=== PATIENT | female | born 1940 | race Two or more races ===

== ENCOUNTER 2018-03-26 11:44 | Inpatient (IN) | payer MEDICARE, OTHER ==
--- NOTE | 2018-03-26 12:27 | ED Physician Chart ---
ED Chief Complaint/HPI - Patient Information Date Seen:: 03/26/18 Time Seen:: 11:50 Chief Complaint:: Syncope History of Present Illness:: onset x 2 days of syncope, weakness, dizziness, and vertigo resulting in falls with failure to rthrive; no report of H/As, S/T, neck pain, C/P, SOB, Abd. Pain , A/N/V/D/C, fever, chills, or urinary s/s; pt's last tetanus shot: < 5 years; UTD Allergies:: Allergies Allergy/AdvReac Type Severity Reaction Status Date / Time No Known Allergies Allergy Verified 03/26/18 11:51 Vitals:: Vital Signs - 8 hr 03/26/18 11:52 Temp 97.7 F HR 66 RR 16 BP 173/94 O2 Sat % 98 Historian:: Patient, EMS Review:: Nurse's Note Reviewed, Old Chart Reviewed, EMS run form Reviewed ED Review of Systems - Review of Systems General/Constitutional: No fever, No chills, No weight loss, Weakness, No diaphoresis, No edema, No loss of appetite Skin: No skin lesions, No rash, No bruising Head: No headache, No light-headedness Eyes: No loss of vision, No pain, No diplopia ENT: No earache, No nasal drainage, No sore throat, No tinnitus Neck: No neck pain, No swelling, No thyromegaly, No stiffness, No mass noted Cardio Vascular: No chest pain, No palpitations, No PND, No orthopnea, No edema Pulmonary: No SOB, No cough, No sputum, No wheezing GI: No nausea, No vomiting, No diarrhea, No pain, No melena, No hematochezia, No constipation, No hematemesis G/U: No dysuria, No frequency, No hematuria, No nacturia 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, No abnormal vaginal bleed, No contraction Musculoskeletal: No bone or joint pain, No back pain, No muscle pain Endocrine: No polyuria, No polydipsia Psychiatric: Prior psych history, Depression, Anxiety, No suicidal ideation, No homicidal ideation, No auditory hallucination, No visual hallucination Hematopoietic: No bruising, No lymphadenopathy Allergic/Immuno: No urticaria, No angioedema Neurological: Syncope, No focal symptoms, Weakness, No paresthesia, No headache , No seizure, Dizziness, Confusion, Vertigo ED Past Medical History - Past Medical History Obtainable: Yes Past Medical History: HTN, DM, Arthritis Family History: Diabetes Melitus, HTN Social History: Non Smoker, No Alcohol, No Drug Use, , Care Facility Surgical History: None Psychiatricy History: Depression Medication: Reviewed Family Medical History - Family Member Mother History Unknown: Yes ED Physical Exam - Physical Examination General/Constitutional: Awake, Well-developed, well-nourished, Alert, No distress, GCS 15, Non-toxic appearing, Ambulatory Head: Atraumatic Eyes: Lids, conjuctiva normal, PERRL, EOMI Skin: Nl inspection, No rash, No skin lesions, No ecchymosis, Well hydrated, No lymphadenopathy ENMT: External ears, nose nl, TM canals nl, Nasal exam nl, Lips, teeth, gums nl , Oropharynx nl, Tonsils nl Neck: Nontender, Full ROM w/o pain, No JVD, No nuchal rigidity, No bruit, No mass, No stridor Respiratory: Nl effort/Exclusion, Clear to Auscultation, No Wheeze/Rhonchi/Rales Cardio Vascular: RRR, No murmur, gallop, rubs, NL S1 S2, Carotid/Femoral/Distal pulses equal bilaterally GI: No tenderness/rebounding/guarding, No organomegaly, No hernia, Normal BS's, Nondistended, No mass/bruits, No McBurney tenderness, Rectum exam nl : No CVA tenderness Extremities: No tenderness or effusion, Full ROM, normal strength in all extremities, No edema, Normal digits & nails Neuro/Psych: Alert/oriented, DTR's symmetric, Normal sensory exam, Normal motor strength, Judgement/insight normal, Mood normal, Normal gait, No focal deficits Misc: Normal back, No paraspinal tenderness ED Labs/Radiology/EKG Results - Lab Results Comments:: unremarkable - Radiology Results Comments:: CM; NAD - EKG Interpretations EKG Time:: 12:18 Rate & Rhythm: 67; NSR Comments:: T-Wave Inversions; non-specific st-t changes ED Septic Shock - . Is Septic Shock (SBP<90, OR Lactate>4 mmol\L) present?: No - <6hrs of presentation: Vital Signs: Vital Signs - 8 hr 03/26/18 11:52 Temp 97.7 F HR 66 RR 16 BP 173/94 O2 Sat % 98 ED Reassessment (Disposition) - Reassessment Reassessment Condition:: Improved - Diagnosis Diagnosis:: Myocardial Ischemia; Failure to Thrive; Syncope; Falls; TIA; Cardiac Arrythmias; - Aftercare/Follow up Instructions Aftercare/Follow-Up Instructions:: Counseled pt regarding lab results/diagnosis & need follow up, Counseled pt & family regarding lab results/diagnosis & need follow up - Patient Disposition Discharge/Transfer:: Acute Care w/in this hosp Accepting Physician:: Dr. Vasquez Time Called:: 1330 Time Responded:: 13:30 Admitted to:: Telemetry Spoke to:: Dr. Vasquez Admitting Medical Physician:: Dr. Vasquez Condition at Disposition:: Stable, Improved ED Discharge Plan - Patient Disposition Instructions: Psychosis
[2018-03-26 12:30] LABS: % BASOPHILS 1.2 % (0.0-2.0); % LYMPHOCYTES 21.5 % (20.0-50.0); % MONOCYTES 6.8 % (2.0-10.0); % NEUTROPHILS 66.5 % (40.0-80.0); BASOPHILE ABSOLUTE 0.1 Th/cumm (0-0.2); EOSINOPHILE ABSOLUTE 0.3 Th/cmm (0.1-0.4); HEMATOCRIT 38.5 % (41.0-60); LYMPHOCYTE ABSOLUTE 1.4 Th/cmm (1.5-3.0); MEAN CELL VOLUME 82.3 fl (81-100); MEAN CORPUSCULAR HEMOGLOBIN 27.8 pg (27.0-31.0); MEAN CORPUSCULAR HGB CONC 33.8 pg (28.0-36.0); MEAN PLATELET VOLUME 8.4 fl; MONOCYTE ABSOLUTE 0.4 Th/cmm (0.3-1.0); NEUTROPHILE ABSOLUTE 4.4 Th/cmm (1.8-8.0); PLATELET COUNT 254 Th/cmm (150-400); RED BLOOD COUNT 4.68 Mil/cmm (3.80-5.20); RED CELL DISTRIBUTION WIDTH 14.2 % (11.5-20.0); WHITE BLOOD COUNT 6.6 Th/cmm (4.8-10.8)
--- NOTE | 2018-03-26 12:35 | Diagnostic Imaging Report ---
CHEST X-RAY: AP view INDICATION: pain COMPARISON: None FINDINGS: Left lower lung zone subsegmental atelectasis versus scarring is noted. Mild chronic changes are noted. There is no focal consolidation or pleural effusions The heart is normal in size. Atherosclerosis is noted. Degenerative changes of the spine are noted. IMPRESSION: Left lower lung zone subsegmental atelectasis versus scarring. No focal consolidation identified. Atherosclerotic vascular disease.
[2018-03-26 12:53] LABS: TROP I 0.03 ng/mL (0.01-0.05)
[2018-03-26 13:20] LABS: INR 0.95 (0.5-1.4); PROTHROMBIN TIME (TEST) 9.9 SECONDS (9.5-11.5)
[2018-03-26 14:03] LABS: ALB/GLOB RATIO 1.4 (1.0-1.8); ALKALINE PHOSPHATASE 79 U/L (34-104); ANION GAP 11.6 (7.0-16.0); BILIRUBIN,TOTAL 0.4 mg/dL (0.3-1.0); BUN - UREA NITROGEN 18 mg/dL (7-25); CALCIUM SERUM 9.4 mg/dL (8.6-10.3); CARBON DIOXIDE 27.1 mEq/L (21.0-31.0); CHLORIDE 106 mEq/L (98-107); CREATININE - SERUM 0.8 mg/dL (0.6-1.2); CREATININE KINASE 37 U/L (30-223); GLUCOSE 133 mg/dL (70-105); POTASSIUM SERUM 3.7 mEq/L (3.5-5.1); SGOT 16 U/L (13-39); SGPT/ALT 10 U/L (7-52); SODIUM SERUM 141 mEq/L (136-145); TOTAL PROTEIN,SERUM 6.8 gm/dL (6.0-8.3)
[2018-03-26 16:05] LABS: URINE MICROSCOPIC INDICATED? YES; URINE SOURCE MIDSTREAM
[2018-03-26 16:07] LABS: URINE BILIRUBIN NEGATIVE (NEGATIVE); URINE BLOOD NEGATIVE (NEGATIVE); URINE GLUCOSE (UA) NEGATIVE (NEGATIVE); URINE KETONE NEGATIVE (NEGATIVE); URINE LEUKOCYTE ESTERASE SMALL (NEGATIVE); URINE NITRATE NEGATIVE (NEGATIVE); URINE PROTEIN NEGATIVE (NEGATIVE); URINE UROBILINOGEN 0.2 E.U./dL (0.2 - 1.0)
[2018-03-26 16:14] LABS: URINE CLARITY CLEAR (CLEAR); URINE COLOR YELLOW
[2018-03-26 16:17] LABS: URINE BACTERIA NONE SEEN /hpf (NONE SEEN); URINE EPITHELIAL CELLS RARE /lpf (FEW); URINE RBC NONE SEEN /hpf (0-5); URINE WBC 0-2 /hpf (0-5)
[2018-03-26 18:15] VITALS: BP 185/114
[2018-03-26] MEDS ORDERED: MYLANTA PO PRN (18:37)
[2018-03-26] MEDS ORDERED: MAGNESIUM HYDROXIDE PO PRN (18:37)
[2018-03-26] MEDS ORDERED: ALUMINUM HYDROXIDE PO PRN (18:37)
[2018-03-26] MEDS ORDERED: PYRIDOXINE HCL PO SCH (21:00)
[2018-03-26] MEDS ORDERED: MELATONIN PO SCH (21:00)
--- NOTE | 2018-03-27 07:06 | Consultation ---
DATE OF CONSULTATION: 03/27/2018 AGE: 77. SEX: Female. PHYSICIAN: Dr. Vasquez. TERRAZZO WORKER APPRENTICE: Dr. Talley. TYPE OF THE REPORT: Psychiatric consult. REASON FOR THE CONSULT: Agitation and confusion. HISTORY OF PRESENT ILLNESS: The patient was admitted to the hospital because of syncope for 2 days as well as weakness, dizziness and vertigo results in falls with failure to thrive. Chart reviewed and the patient interviewed and discussed the patient's condition with the staff. The patient is confused and agitated. She also was restless. The patient did not answer any of my questions coherently. She also was fighting mittens and a soft restraints. The patient also has been taking Ativan in order to calm her down but is not helping that much. PAST PSYCHIATRIC HISTORY: The patient seems to have history of dementia. PAST MEDICAL HISTORY: As per Dr. Vasquez. SOCIAL HISTORY: The patient lives in a halfway. No known alcohol or drug use. MENTAL STATUS EXAM: The patient appears her stated age. Anxious. Irritable mood. Thought processes was confusion and poverty of speech. The patient did not answer questions regarding hallucinations, but actively responding to stimuli and actively talking to herself. Poor insight and poor judgment. ASSESSMENT: PRIMARY DIAGNOSIS: Unspecified psychosis. TREATMENT PLAN: Continue to monitor her behavior and her condition closely. Also, we will start the patient on Seroquel and we will adjust the dose. Also, monitor her behavior. Thanks to Dr. Vasquez and we will follow with you. JOB# [id number]
[2018-03-27] MEDS ORDERED: Maalox 30 mL Cup PO PRN ×2 (08:43→08:45)
[2018-03-27] MEDS ORDERED: PYRIDOXINE HCL PO SCH (09:00)
[2018-03-27] MEDS ORDERED: MELATONIN PO SCH (09:00)
--- NOTE | 2018-03-27 16:36 | History & Physical ---
ADMIT DATE: 03/26/2018 HISTORY OF PRESENT ILLNESS: I saw the patient last night. This is a patient who came to the Emergency Room for syncopal episodes and also history of underling psychosis. Two days ago, the patient had syncope, weakness, complaining of dizziness and vertigo. The patient has had multiple falls. The patient is not able to eat well and the patient was admitted for evaluation. All history obtained from the patient as well as from the EMS records and nurses' notes were reviewed. The patient's past medical history is difficult to obtain. REVIEW OF SYSTEMS: Except for history of fall and history of syncope, all other systems were negative. PAST MEDICAL HISTORY: Hypertension, diabetes, arthritis. PHYSICAL EXAMINATION: HEAD: Normal. ENT: Normal. NECK: Supple, nontender. LUNGS: Clear. CARDIOVASCULAR SYSTEM: S1, S2 heard. ABDOMEN: Soft. Bowel sounds are present. CENTRAL NERVOUS SYSTEM: The patient is confused, agitated. LABORATORY DATA: EKG showed some changes and blood pressure was on the high side, 173/93. DIAGNOSES: Hypertensive cardiovascular disease, myocardial ischemia, failure to thrive, history of syncope, history of fall, rule out TIA, rule out cardiac arrhythmia and underlying psychosis was made. PLAN: The patient is being admitted and I will go ahead and do a cardiac and neuro workup and I will have both the bait maker as well as neurologist see the patient and I will follow the patient. JOB# [id number]
[2018-03-27] MEDS ORDERED: Pneumococcal Vaccine 0.5 mL Vial IM ONE (17:00)
[2018-03-28 07:36] LABS: RED CELL DISTRIBUTION WIDTH 13.9 % (11.5-20.0)
[2018-03-28 07:47] LABS: HEMATOCRIT 42.8 % (41.0-60); HEMOGLOBIN 14.2 gm/dL (12-16); MEAN CELL VOLUME 83.3 fl (81-100); MEAN CORPUSCULAR HEMOGLOBIN 27.7 pg (27.0-31.0); MEAN CORPUSCULAR HGB CONC 33.3 pg (28.0-36.0); MEAN PLATELET VOLUME 9.5 fl; PLATELET COUNT 275 Th/cmm (150-400); RED BLOOD COUNT 5.14 Mil/cmm (3.80-5.20); WHITE BLOOD COUNT 11.8 Th/cmm (4.8-10.8)
[2018-03-28 07:53] LABS: ANION GAP 12.7 (7.0-16.0); BUN - UREA NITROGEN 22 mg/dL (7-25); CALCIUM SERUM 9.4 mg/dL (8.6-10.3); CARBON DIOXIDE 23.7 mEq/L (21.0-31.0); CHLORIDE 105 mEq/L (98-107); CREATININE - SERUM 0.8 mg/dL (0.6-1.2); GLUCOSE 135 mg/dL (70-105); POTASSIUM SERUM 3.4 mEq/L (3.5-5.1); SODIUM SERUM 138 mEq/L (136-145)
[2018-03-28 09:23] LABS: BAND NEUTROPHILE 4 % (0-10); LYMPHOCYTE 12 % (20-50); NEUTROPHILS 76 % (40-80)
[2018-03-28 09:24] LABS: BASOPHIL 0 % (0-3); EOSINOPHIL 3 % (0-5); MONOCYTE 5 % (2-10); PLATELET ESTIMATE ADEQUATE (NORMAL); PLATELET MORPHOLOGY NORMAL (NORMAL)
[2018-03-28] MEDS: D5-0.45NS 1,000 ML IV SCH (13:39)
[2018-03-28] MEDS ORDERED: Potassium Chloride 20 mEq ER Tab PO ONE ×2 (19:24→19:28)
--- NOTE | 2018-03-28 21:24 | Progress Notes ---
DATE: 03/28/2018 PSYCHIATRIC PROGRESS NOTE SUBJECTIVE: Chart reviewed and the patient interviewed. Also discussed the patient's condition with the staff and reviewed records and labs. The patient is calmer and less agitated. The patient also is interacting more. The patient is less agitated and less irritable. She is also compliant with taking her medications with no side effects of Zyprexa or Depakote. ASSESSMENT: The patient is calmer. TREATMENT PLAN: Continue same medications and current treatment and continue to follow up closely her behavior. [facility]# [id number]
--- NOTE | 2018-03-28 22:17 | General Progress Note ---
Subjective - Review of Systems Service Date: 03/28/18 Subjective: nad Objective - Results Result Diagrams: 03/28/18 07:05 03/28/18 07:05 Recent Labs: Laboratory Last Values WBC 11.8 Th/cmm (4.8-10.8) H 03/28/18 07:05 RBC 5.14 Mil/cmm (3.80-5.20) 03/28/18 07:05 Hgb 14.2 gm/dL (12-16) 03/28/18 07:05 Hct 42.8 % (41.0-60) 03/28/18 07:05 MCV 83.3 fl (81-100) 03/28/18 07:05 MCH 27.7 pg (27.0-31.0) 03/28/18 07:05 MCHC Differential 33.3 pg (28.0-36.0) 03/28/18 07:05 RDW 13.9 % (11.5-20.0) 03/28/18 07:05 Plt Count 275 Th/cmm (150-400) 03/28/18 07:05 MPV 9.5 fl 03/28/18 07:05 Add Manual Diff YES 03/28/18 07:05 Neutrophils % 66.5 % (40.0-80.0) 03/26/18 12:18 Band Neutrophils % 4 % (0-10) 03/28/18 07:05 Lymphocytes % 21.5 % (20.0-50.0) 03/26/18 12:18 Monocytes % 6.8 % (2.0-10.0) 03/26/18 12:18 Eosinophils % 4.0 % (0.0-5.0) 03/26/18 12:18 Basophils % 1.2 % (0.0-2.0) 03/26/18 12:18 Neutrophils (Manual) 76 % (40-80) 03/28/18 07:05 Lymphocytes 12 % (20-50) L 03/28/18 07:05 Monocytes 5 % (2-10) 03/28/18 07:05 Eosinophils 3 % (0-5) 03/28/18 07:05 Basophils 0 % (0-3) 03/28/18 07:05 Platelet Estimate ADEQUATE (NORMAL) 03/28/18 07:05 Platelet Morphology NORMAL (NORMAL) 03/28/18 07:05 RBC Morph Micro Appear NORMAL (NORMAL) 03/28/18 07:05 PT 9.9 SECONDS (9.5-11.5) 03/26/18 12:18 INR 0.95 (0.5-1.4) 03/26/18 12:18 PTT (Actin FS) 31.2 SECONDS (26.0-38.0) 03/26/18 12:18 Sodium 138 mEq/L (136-145) 03/28/18 07:05 Potassium 3.4 mEq/L (3.5-5.1) L 03/28/18 07:05 Chloride 105 mEq/L (98-107) 03/28/18 07:05 Carbon Dioxide 23.7 mEq/L (21.0-31.0) 03/28/18 07:05 Anion Gap 12.7 (7.0-16.0) 03/28/18 07:05 BUN 22 mg/dL (7-25) 03/28/18 07:05 Creatinine 0.8 mg/dL (0.6-1.2) 03/28/18 07:05 Est GFR ( Amer) TNP 03/28/18 07:05 Est GFR (Non-Af Amer) TNP 03/28/18 07:05 BUN/Creatinine Ratio 27.5 03/28/18 07:05 Glucose 135 mg/dL (70-105) H 03/28/18 07:05 POC Glucose 167 MG/DL (70 - 105) H 03/28/18 12:24 Whole Bld Lactic Acid 1.68 mmol/L (0.60-1.99) 03/26/18 12:18 Calcium 9.4 mg/dL (8.6-10.3) 03/28/18 07:05 Total Bilirubin 0.4 mg/dL (0.3-1.0) 03/26/18 12:18 AST 16 U/L (13-39) 03/26/18 12:18 ALT 10 U/L (7-52) 03/26/18 12:18 Alkaline Phosphatase 79 U/L (34-104) 03/26/18 12:18 Creatine Kinase 37 U/L (30-223) 03/26/18 12:18 Troponin I 0.03 ng/mL (0.01-0.05) 03/26/18 12:18 Total Protein 6.8 gm/dL (6.0-8.3) 03/26/18 12:18 Albumin 4.0 gm/dL (3.7-5.3) 03/26/18 12:18 Globulin 2.8 gm/dL 03/26/18 12:18 Albumin/Globulin Ratio 1.4 (1.0-1.8) 03/26/18 12:18 Urine Source MIDSTREAM 03/26/18 14:31 Urine Color YELLOW 03/26/18 14:31 Urine Clarity CLEAR (CLEAR) 03/26/18 14:31 Urine pH 6.0 (4.6 - 8.0) 03/26/18 14:31 Ur Specific [place] 1.010 (1.005-1.030) 03/26/18 14:31 Urine Protein NEGATIVE mg/dL (NEGATIVE) 03/26/18 14:31 Urine Glucose (UA) NEGATIVE mg/dL (NEGATIVE) 03/26/18 14:31 Urine Ketones NEGATIVE mg/dL (NEGATIVE) 03/26/18 14:31 Urine Blood NEGATIVE (NEGATIVE) 03/26/18 14:31 Urine Nitrate NEGATIVE (NEGATIVE) 03/26/18 14:31 Urine Bilirubin NEGATIVE (NEGATIVE) 03/26/18 14:31 Urine Urobilinogen 0.2 E.U./dL (0.2 - 1.0) 03/26/18 14:31 Ur Leukocyte Esterase SMALL (NEGATIVE) H 03/26/18 14:31 Urine RBC NONE SEEN /hpf (0-5) 03/26/18 14:31 Urine WBC 0-2 /hpf (0-5) 03/26/18 14:31 Ur Epithelial Cells RARE /lpf (FEW) 03/26/18 14:31 Urine Bacteria NONE SEEN /hpf (NONE SEEN) 03/26/18 14:31 - Physical Exam Vitals and I&O: Vital Signs Temp 98.2 F 03/28/18 19:54 Pulse 91 03/28/18 19:54 Resp 18 03/28/18 19:54 BP 159/87 03/28/18 19:54 Pulse Ox 96 03/28/18 19:54 Intake & Output 03/28/18 03/28/18 03/29/18 06:59 18:59 06:59 Intake Total 150 320 Balance 150 320 Weight (lbs) 43.59 kg 43.545 kg Intake: Oral 150 320 Other: # Voids 1 3 # Bowel Movements 0 2 Weight Source Bedscale Bedscale Active Medications: Current Medications Al Hydrox/Mg Hydrox/Simethicone (Maalox) 30 ml PO DAILY PRN PRN Reason: GI DISTRESS Stop: 05/26/18 08:42 Aspirin (Ecotrin) 81 mg PO DAILY [facility] Stop: 05/26/18 08:59 Last Admin: 03/28/18 09:29 Dose: 81 mg Famotidine (Pepcid) 20 mg PO DAILY [facility] Stop: 05/26/18 08:59 Last Admin: 03/28/18 09:29 Dose: 20 mg Dextrose/Sodium Chloride (D5-0.45ns) 1,000 mls @ 80 mls/hr IV .[id number] [facility] Stop: 05/27/18 11:59 Last Admin: 03/28/18 13:39 Dose: 80 mls/hr Loratadine (Claritin) 10 mg PO DAILY PRN PRN Reason: Allergy Symptoms Stop: 05/25/18 18:36 Lorazepam (Ativan) 1 mg IVP Q6H PRN; Protocol PRN Reason: Agitation Stop: 05/25/18 18:45 Last Admin: 03/28/18 16:04 Dose: 1 mg Megestrol Acetate (Megace) 400 mg PO BID [facility]; Protocol Stop: 05/27/18 16:59 Last Admin: 03/28/18 16:04 Dose: 400 mg Metoprolol Tartrate (Lopressor) 50 mg PO BID [facility] Stop: 05/26/18 08:59 Last Admin: 03/28/18 16:04 Dose: 50 mg Nitroglycerin (Nitrostat) 0.4 mg SL Q5MIN PRN PRN Reason: Chest Pain Stop: 05/25/18 18:36 Quetiapine Fumarate (Seroquel) 25 mg PO TID [facility]; Protocol Stop: 05/26/18 08:59 Last Admin: 03/28/18 16:12 Dose: 25 mg Simvastatin (Zocor) 10 mg PO HS [facility]; Protocol Stop: 05/25/18 20:59 Last Admin: 03/27/18 21:56 Dose: 10 mg General: Alert, No acute distress HEENT: Atraumatic Neck: Supple Cardiovascular: Regular rate, Normal S1, Normal S2 Lungs: Clear to auscultation Abdomen: Bowel sounds, Soft Assessment/Plan - Assessment Assessment: agitation psychosis - Plan Plan: cpm
[2018-03-29] MEDS: D5-0.45NS 1,000 ML IV SCH ×2 (04:48→20:55)
[2018-03-29 07:03] LABS: % BASOPHILS 0.5 % (0.0-2.0); % EOSINOPHILS 0.7 % (0.0-5.0); % LYMPHOCYTES 11.1 % (20.0-50.0); % MONOCYTES 9.1 % (2.0-10.0); % NEUTROPHILS 78.6 % (40.0-80.0); BASOPHILE ABSOLUTE 0.1 Th/cumm (0-0.2); EOSINOPHILE ABSOLUTE 0.1 Th/cmm (0.1-0.4); HEMATOCRIT 39.4 % (41.0-60); HEMOGLOBIN 13.1 gm/dL (12-16); LYMPHOCYTE ABSOLUTE 1.4 Th/cmm (1.5-3.0); MEAN CELL VOLUME 82.9 fl (81-100); MEAN CORPUSCULAR HEMOGLOBIN 27.6 pg (27.0-31.0); MEAN CORPUSCULAR HGB CONC 33.2 pg (28.0-36.0); MEAN PLATELET VOLUME 9.1 fl; MONOCYTE ABSOLUTE 1.1 Th/cmm (0.3-1.0); NEUTROPHILE ABSOLUTE 9.7 Th/cmm (1.8-8.0); PLATELET COUNT 240 Th/cmm (150-400); RED BLOOD COUNT 4.75 Mil/cmm (3.80-5.20); RED CELL DISTRIBUTION WIDTH 13.7 % (11.5-20.0); WHITE BLOOD COUNT 12.4 Th/cmm (4.8-10.8)
[2018-03-29 07:19] LABS: BUN - UREA NITROGEN 26 mg/dL (7-25); CALCIUM SERUM 8.9 mg/dL (8.6-10.3); CARBON DIOXIDE 22.1 mEq/L (21.0-31.0); CHLORIDE 108 mEq/L (98-107); CREATININE - SERUM 0.8 mg/dL (0.6-1.2); GLUCOSE 162 mg/dL (70-105); POTASSIUM SERUM 4.1 mEq/L (3.5-5.1); SODIUM SERUM 137 mEq/L (136-145)
--- NOTE | 2018-03-29 20:37 | Progress Notes ---
DATE: 03/29/2018 PSYCHIATRIC PROGRESS NOTE SUBJECTIVE: Chart reviewed and the patient interviewed. Also discussed the patient's condition with the staff and reviewed records and labs. The patient is calm and cooperative. The patient also is trying to interact. Decreased mood swings. Decreased irritability and agitation. No side effects of medications except the patient start sedated. ASSESSMENT: The patient is calmer. TREATMENT PLAN: Continue monitoring her condition and to continue current medications and monitor her behavior and will follow up. [facility]# [id number]
--- NOTE | 2018-03-29 20:43 | Progress Notes ---
DATE: 03/29/2018 SUBJECTIVE: The patient was seen in her room, lying in the bed. The patient is a poor historian due to medical condition. The patient has episodes of agitation and irritability. Otherwise, the patient appears to be in no acute distress. OBJECTIVE: VITAL SIGNS: Temperature 98.1, heart rate of 82, blood pressure of 132/84, respirations of 18, 98% on room air. HEENT: Head is atraumatic and normocephalic. Eyes: Bilateral conjunctivae are clear. Bilateral pupils equally round and reactive. NECK: Supple. No JVD. CARDIOVASCULAR: S1 and S2, without murmur. PULMONARY: Clear to auscultation. GASTROINTESTINAL: Soft and nontender without guarding. Positive bowel sounds. MUSCULOSKELETAL: No clubbing. No cyanosis noted. ASSESSMENT: 1. Hypertension. 2. Myocardial infarction. 3. Failure to thrive. 4. Psychosis. PLAN: We will continue to keep the patient inpatient. We will follow up with a psychiatrist and we will continue to monitor the patient's behavior. Treatment plans were discussed with the patient's nurse. Treatment plans were discussed with Dr. Vasquez. JOB# [id number]
[2018-03-30] MEDS: D5-0.45NS 1,000 ML IV SCH (08:54)
[2018-03-30 09:55] LABS: % BASOPHILS 0.6 % (0.0-2.0); % EOSINOPHILS 2.2 % (0.0-5.0); % LYMPHOCYTES 16.1 % (20.0-50.0); % MONOCYTES 8.2 % (2.0-10.0); % NEUTROPHILS 72.9 % (40.0-80.0); BASOPHILE ABSOLUTE 0.1 Th/cumm (0-0.2); EOSINOPHILE ABSOLUTE 0.2 Th/cmm (0.1-0.4); HEMATOCRIT 38.7 % (41.0-60); LYMPHOCYTE ABSOLUTE 1.6 Th/cmm (1.5-3.0); MEAN CELL VOLUME 82.7 fl (81-100); MEAN CORPUSCULAR HEMOGLOBIN 27.7 pg (27.0-31.0); MEAN CORPUSCULAR HGB CONC 33.6 pg (28.0-36.0); MEAN PLATELET VOLUME 8.1 fl; MONOCYTE ABSOLUTE 0.8 Th/cmm (0.3-1.0); NEUTROPHILE ABSOLUTE 7.3 Th/cmm (1.8-8.0); PLATELET COUNT 233 Th/cmm (150-400); RED BLOOD COUNT 4.69 Mil/cmm (3.80-5.20); RED CELL DISTRIBUTION WIDTH 13.9 % (11.5-20.0)
[2018-03-30 10:11] LABS: ALB/GLOB RATIO 1.3 (1.0-1.8); ALBUMIN 3.7 gm/dL (3.7-5.3); ALKALINE PHOSPHATASE 65 U/L (34-104); ANION GAP 10.3 (7.0-16.0); BILIRUBIN,TOTAL 0.9 mg/dL (0.3-1.0); BUN - UREA NITROGEN 10 mg/dL (7-25); CARBON DIOXIDE 21.9 mEq/L (21.0-31.0); CHLORIDE 105 mEq/L (98-107); CREATININE - SERUM 0.5 mg/dL (0.6-1.2); GLUCOSE 159 mg/dL (70-105); POTASSIUM SERUM 3.2 mEq/L (3.5-5.1); SGOT 28 U/L (13-39); SGPT/ALT 13 U/L (7-52); SODIUM SERUM 134 mEq/L (136-145); TOTAL PROTEIN,SERUM 6.6 gm/dL (6.0-8.3)
[2018-03-30] MEDS ORDERED: Potassium Chloride 20 mEq ER Tab PO ONE (12:10)
--- NOTE | 2018-03-30 13:40 | General Progress Note ---
Subjective - Review of Systems Events since last encounter: patient awake no signs of pain Subjective: nad Objective - Results Result Diagrams: 03/30/18 09:48 03/30/18 09:48 Recent Labs: Laboratory Last Values WBC 10.0 Th/cmm (4.8-10.8) 03/30/18 09:48 RBC 4.69 Mil/cmm (3.80-5.20) 03/30/18 09:48 Hgb 13.0 gm/dL (12-16) 03/30/18 09:48 Hct 38.7 % (41.0-60) L 03/30/18 09:48 MCV 82.7 fl (81-100) 03/30/18 09:48 MCH 27.7 pg (27.0-31.0) 03/30/18 09:48 MCHC Differential 33.6 pg (28.0-36.0) 03/30/18 09:48 RDW 13.9 % (11.5-20.0) 03/30/18 09:48 Plt Count 233 Th/cmm (150-400) 03/30/18 09:48 MPV 8.1 fl 03/30/18 09:48 Add Manual Diff YES 03/28/18 07:05 Neutrophils % 72.9 % (40.0-80.0) 03/30/18 09:48 Band Neutrophils % 4 % (0-10) 03/28/18 07:05 Lymphocytes % 16.1 % (20.0-50.0) L 03/30/18 09:48 Monocytes % 8.2 % (2.0-10.0) 03/30/18 09:48 Eosinophils % 2.2 % (0.0-5.0) 03/30/18 09:48 Basophils % 0.6 % (0.0-2.0) 03/30/18 09:48 Neutrophils (Manual) 76 % (40-80) 03/28/18 07:05 Lymphocytes 12 % (20-50) L 03/28/18 07:05 Monocytes 5 % (2-10) 03/28/18 07:05 Eosinophils 3 % (0-5) 03/28/18 07:05 Basophils 0 % (0-3) 03/28/18 07:05 Platelet Estimate ADEQUATE (NORMAL) 07/13/18 07:05 Platelet Morphology NORMAL (NORMAL) 03/28/18 07:05 RBC Morph Micro Appear NORMAL (NORMAL) 03/28/18 07:05 PT 9.9 SECONDS (9.5-11.5) 03/26/18 12:18 INR 0.95 (0.5-1.4) 03/26/18 12:18 PTT (Actin FS) 31.2 SECONDS (26.0-38.0) 03/26/18 12:18 Sodium 134 mEq/L (136-145) L 03/30/18 09:48 Potassium 3.2 mEq/L (3.5-5.1) L 03/30/18 09:48 Chloride 105 mEq/L (98-107) 03/30/18 09:48 Carbon Dioxide 21.9 mEq/L (21.0-31.0) 03/30/18 09:48 Anion Gap 10.3 (7.0-16.0) 03/30/18 09:48 BUN 10 mg/dL (7-25) 03/30/18 09:48 Creatinine 0.5 mg/dL (0.6-1.2) L 03/30/18 09:48 Est GFR ( Amer) TNP 03/30/18 09:48 Est GFR (Non-Af Amer) TNP 03/30/18 09:48 BUN/Creatinine Ratio 20.0 03/30/18 09:48 Glucose 159 mg/dL (70-105) H 03/30/18 09:48 POC Glucose 167 MG/DL (70 - 105) H 03/28/18 12:24 Whole Bld Lactic Acid 1.68 mmol/L (0.60-1.99) 03/26/18 12:18 Calcium 9.0 mg/dL (8.6-10.3) 03/30/18 09:48 Total Bilirubin 0.9 mg/dL (0.3-1.0) 03/30/18 09:48 AST 28 U/L (13-39) 03/30/18 09:48 ALT 13 U/L (7-52) 03/30/18 09:48 Alkaline Phosphatase 65 U/L (34-104) 03/30/18 09:48 Creatine Kinase 37 U/L (30-223) 03/26/18 12:18 Troponin I 0.03 ng/mL (0.01-0.05) 03/26/18 12:18 Total Protein 6.6 gm/dL (6.0-8.3) 03/30/18 09:48 Albumin 3.7 gm/dL (3.7-5.3) 03/30/18 09:48 Globulin 2.9 gm/dL 03/30/18 09:48 Albumin/Globulin Ratio 1.3 (1.0-1.8) 03/30/18 09:48 Urine Source MIDSTREAM 03/26/18 14:31 Urine Color YELLOW 03/26/18 14:31 Urine Clarity CLEAR (CLEAR) 03/26/18 14:31 Urine pH 6.0 (4.6 - 8.0) 03/26/18 14:31 Ur Specific [place] 1.010 (1.005-1.030) 03/26/18 14:31 Urine Protein NEGATIVE mg/dL (NEGATIVE) 03/26/18 14:31 Urine Glucose (UA) NEGATIVE mg/dL (NEGATIVE) 03/26/18 14:31 Urine Ketones NEGATIVE mg/dL (NEGATIVE) 03/26/18 14:31 Urine Blood NEGATIVE (NEGATIVE) 03/26/18 14:31 Urine Nitrate NEGATIVE (NEGATIVE) 03/26/18 14:31 Urine Bilirubin NEGATIVE (NEGATIVE) 03/26/18 14:31 Urine Urobilinogen 0.2 E.U./dL (0.2 - 1.0) 03/26/18 14:31 Ur Leukocyte Esterase SMALL (NEGATIVE) H 03/26/18 14:31 Urine RBC NONE SEEN /hpf (0-5) 03/26/18 14:31 Urine WBC 0-2 /hpf (0-5) 03/26/18 14:31 Ur Epithelial Cells RARE /lpf (FEW) 03/26/18 14:31 Urine Bacteria NONE SEEN /hpf (NONE SEEN) 03/26/18 14:31 - Physical Exam Vitals and I&O: Vital Signs Temp 96.9 F 03/30/18 12:26 Pulse 71 03/30/18 12:26 Resp 18 03/30/18 12:26 BP 113/77 03/30/18 12:26 Pulse Ox 100 03/30/18 12:26 Intake & Output 03/29/18 03/30/18 03/30/18 18:59 06:59 18:59 Intake Total 1150 100 958.667 Balance 1150 100 958.667 Weight (lbs) 47.627 kg 47.627 kg Intake: Intake, IV Amount 1000 958.667 D5-0.45NS 1,000 ml @ 80 1000 958.667 mls/hr IV .[id number] [facility] Rx #:[id number] Oral 150 100 Other: # Voids 3 3 # Bowel Movements 1 2 Weight Source Bedscale Bedscale Active Medications: Current Medications Al Hydrox/Mg Hydrox/Simethicone (Maalox) 30 ml PO DAILY PRN PRN Reason: GI DISTRESS Stop: 05/26/18 08:42 Aspirin (Ecotrin) 81 mg PO DAILY [facility] Stop: 05/26/18 08:59 Last Admin: 03/30/18 08:45 Dose: 81 mg Famotidine (Pepcid) 20 mg PO DAILY [facility] Stop: 05/26/18 08:59 Last Admin: 03/30/18 08:45 Dose: 20 mg Dextrose/Sodium Chloride (D5-0.45ns) 1,000 mls @ 80 mls/hr IV .[id number] [facility] Stop: 05/27/18 11:59 Last Admin: 03/30/18 08:54 Dose: 80 mls/hr Loratadine (Claritin) 10 mg PO DAILY PRN PRN Reason: Allergy Symptoms Stop: 05/25/18 18:36 Lorazepam (Ativan) 1 mg IVP Q6H PRN; Protocol PRN Reason: Agitation Stop: 05/25/18 18:45 Last Admin: 03/30/18 04:41 Dose: 1 mg Megestrol Acetate (Megace) 400 mg PO BID [facility]; Protocol Stop: 05/27/18 16:59 Last Admin: 03/30/18 08:45 Dose: 400 mg Metoprolol Tartrate (Lopressor) 50 mg PO BID [facility] Stop: 05/26/18 08:59 Last Admin: 03/30/18 08:45 Dose: 50 mg Nitroglycerin (Nitrostat) 0.4 mg SL Q5MIN PRN PRN Reason: Chest Pain Stop: 05/25/18 18:36 Quetiapine Fumarate (Seroquel) 25 mg PO TID [facility]; Protocol Stop: 05/26/18 08:59 Last Admin: 03/30/18 08:45 Dose: 25 mg Simvastatin (Zocor) 10 mg PO HS [facility]; Protocol Stop: 05/25/18 20:59 Last Admin: 03/29/18 21:51 Dose: Not Given General: Alert, No acute distress HEENT: Atraumatic Neck: Supple Cardiovascular: Regular rate, Normal S1, Normal S2 Lungs: Clear to auscultation Abdomen: Bowel sounds, Soft Assessment/Plan - Problem List Patient Problems: All Active Problems Failure to thrive (Acute) [id number] HTN (hypertension) (Acute) I10 Myocardial infarction (Acute) I21.9 Psychosis (Acute) F29 - Assessment Assessment: agitation psychosis - Plan Plan: cpm Nutritional Asmnt/Malnutr-PDOC - Dietary Evaluation Malnutrition Findings (Please click <Entered> for more info): Nutritional Asmnt/Malnutrition Start: 03/29/18 14: 17 Text: Status: Complete Freq: Protocol: Document 03/29/18 14:17 BETSY (Rec: 03/29/18 14:46 [email or web address] [email or web address]) Nutritional Asmnt/Malnutrition Patient General Information Nutritional Screening Moderate Risk Diagnosis Syncope, myocardial ischemia Pertinent Medical Hx/Surgical Hx Hypertension, diabetes, arthritis Subjective Information Patient Latvian speaking. Per nursing notes, patient sometimes refuses food. Calorie count start 03/28 lunch . To go through 03/30 breakfast . Patient seen in bed at time of visit. Current Diet Order/ Nutrition Support 60 gm CCHO Patient / S.O Not Indicated Pertinent Medications maalox, D5-0.45 NS @80ml/hr, pepcid, Megace Pertinent Labs (03/29) BUN 26 Nutritional Hx/Data Height 1.63 m Height (Calculated Centimeters) 162.6 Current Weight (lbs) 47.627 kg Weight (Calculated Kilograms) 47.6 Weight (Calculated Grams) 99973.2 Usual body Weight (lbs) 0 [place] Body Weight 120 % [place] Body Weight 87 Body Mass Index (BMI) 18.0 Recent Weight Change No Weight Status Underweight GI Symptoms GI Symptoms None Last BM 03/28 x 2 Difficult in: None Food Allergies No Cultural/Ethnic/Buddhist Belief none indicated Usual diet at home unknown Skin Integrity/Comment: Sai 14, right shoulder abrasion Current %PO Poor (25-49%) Estimated Nutritional Goals BEE in Kcals: Using Current wt Calories/Kcals/Kg 30-35 kcal/kg using CBW 47.7kg Kcals Calculated ~9473-9162 kcal/day Protein g/k-1.2 gm/kg Protein Calculated ~50-60 gm/day Fluid: ml ~4683-9554 ml/day (1 ml/kcal) Nutritional Problem 1. Problem Problem Inadequate oral intake related to Etiology possible poor appetite aeb Signs/Symptoms: meeting <50% of meals Intervention/Recommendation Comments 1. Continue 60 gm CCHO diet as tolerated by patient. 2. Continue appetite stimulant to increase oral intake. 3. Will analyze calorie count on 03/31 once completed Expected Outcomes/Goals Expected Outcomes/Goals oral intake >75% of meals, weight stable or increase toward ideal body weight, nutrition related labs normalize.
[2018-03-31 05:08] LABS: % BASOPHILS 0.7 % (0.0-2.0); % EOSINOPHILS 2.5 % (0.0-5.0); % LYMPHOCYTES 23.6 % (20.0-50.0); % MONOCYTES 9.2 % (2.0-10.0); BASOPHILE ABSOLUTE 0.1 Th/cumm (0-0.2); EOSINOPHILE ABSOLUTE 0.2 Th/cmm (0.1-0.4); HEMATOCRIT 40.5 % (41.0-60); HEMOGLOBIN 13.3 gm/dL (12-16); LYMPHOCYTE ABSOLUTE 2.2 Th/cmm (1.5-3.0); MEAN CELL VOLUME 83.9 fl (81-100); MEAN CORPUSCULAR HEMOGLOBIN 27.6 pg (27.0-31.0); MEAN CORPUSCULAR HGB CONC 32.9 pg (28.0-36.0); MEAN PLATELET VOLUME 9.2 fl; MONOCYTE ABSOLUTE 0.9 Th/cmm (0.3-1.0); PLATELET COUNT 256 Th/cmm (150-400); RED BLOOD COUNT 4.83 Mil/cmm (3.80-5.20); RED CELL DISTRIBUTION WIDTH 13.7 % (11.5-20.0); WHITE BLOOD COUNT 9.4 Th/cmm (4.8-10.8)
[2018-03-31 05:22] LABS: ALB/GLOB RATIO 1.2 (1.0-1.8); ALBUMIN 3.7 gm/dL (3.7-5.3); ALKALINE PHOSPHATASE 65 U/L (34-104); ANION GAP 12.3 (7.0-16.0); BILIRUBIN,TOTAL 0.9 mg/dL (0.3-1.0); BUN - UREA NITROGEN 9 mg/dL (7-25); CALCIUM SERUM 9.1 mg/dL (8.6-10.3); CARBON DIOXIDE 23.2 mEq/L (21.0-31.0); CHLORIDE 105 mEq/L (98-107); CREATININE - SERUM 0.6 mg/dL (0.6-1.2); GLUCOSE 129 mg/dL (70-105); POTASSIUM SERUM 3.5 mEq/L (3.5-5.1); SGOT 30 U/L (13-39); SGPT/ALT 14 U/L (7-52); SODIUM SERUM 137 mEq/L (136-145); TOTAL PROTEIN,SERUM 6.7 gm/dL (6.0-8.3)
--- NOTE | 2018-03-31 08:59 | Progress Notes ---
DATE: 03/31/2018 SUBJECTIVE: Chart reviewed and the patient interviewed. Also discussed the patient's condition with the staff and reviewed records and labs. The patient is calm. She seems to be slightly sedated. Minimum interaction. The patient compliant with taking her medications with no side effects of Seroquel except start sedation. ASSESSMENT: The patient is calm, but seems to be slightly sedated. TREATMENT PLAN: We will continue to monitor her condition and her medications closely. We will decrease Seroquel to 12.5 mg 3 times a day and we will continue monitoring her behavior. JOB# [id number]
--- NOTE | 2018-03-31 16:09 | General Progress Note ---
Subjective - Review of Systems Events since last encounter: patient is comfortable in no distress Subjective: nad Objective - Results Result Diagrams: 03/31/18 04:30 03/31/18 04:30 Recent Labs: Laboratory Last Values WBC 9.4 Th/cmm (4.8-10.8) 03/31/18 04:30 RBC 4.83 Mil/cmm (3.80-5.20) 03/31/18 04:30 Hgb 13.3 gm/dL (12-16) 03/31/18 04:30 Hct 40.5 % (41.0-60) L 03/31/18 04:30 MCV 83.9 fl (81-100) 03/31/18 04:30 MCH 27.6 pg (27.0-31.0) 03/31/18 04:30 MCHC Differential 32.9 pg (28.0-36.0) 03/31/18 04:30 RDW 13.7 % (11.5-20.0) 03/31/18 04:30 Plt Count 256 Th/cmm (150-400) 03/31/18 04:30 MPV 9.2 fl 03/31/18 04:30 Add Manual Diff YES 03/28/18 07:05 Neutrophils % 64.0 % (40.0-80.0) 03/31/18 04:30 Band Neutrophils % 4 % (0-10) 03/28/18 07:05 Lymphocytes % 23.6 % (20.0-50.0) 03/31/18 04:30 Monocytes % 9.2 % (2.0-10.0) 03/31/18 04:30 Eosinophils % 2.5 % (0.0-5.0) 03/31/18 04:30 Basophils % 0.7 % (0.0-2.0) 03/31/18 04:30 Neutrophils (Manual) 76 % (40-80) 03/28/18 07:05 Lymphocytes 12 % (20-50) L 03/28/18 07:05 Monocytes 5 % (2-10) 03/28/18 07:05 Eosinophils 3 % (0-5) 03/28/18 07:05 Basophils 0 % (0-3) 03/28/18 07:05 Platelet Estimate ADEQUATE (NORMAL) 03/28/18 07:05 Platelet Morphology NORMAL (NORMAL) 03/28/18 07:05 RBC Morph Micro Appear NORMAL (NORMAL) 03/28/18 07:05 PT 9.9 SECONDS (9.5-11.5) 03/26/18 12:18 INR 0.95 (0.5-1.4) 03/26/18 12:18 PTT (Actin FS) 31.2 SECONDS (26.0-38.0) 03/26/18 12:18 Sodium 137 mEq/L (136-145) 03/31/18 04:30 Potassium 3.5 mEq/L (3.5-5.1) 03/31/18 04:30 Chloride 105 mEq/L (98-107) 03/31/18 04:30 Carbon Dioxide 23.2 mEq/L (21.0-31.0) 03/31/18 04:30 Anion Gap 12.3 (7.0-16.0) 03/31/18 04:30 BUN 9 mg/dL (7-25) 03/31/18 04:30 Creatinine 0.6 mg/dL (0.6-1.2) 03/31/18 04:30 Est GFR ( Amer) TNP 03/31/18 04:30 Est GFR (Non-Af Amer) TNP 03/31/18 04:30 BUN/Creatinine Ratio 15.0 03/31/18 04:30 Glucose 129 mg/dL (70-105) H 03/31/18 04:30 POC Glucose 167 MG/DL (70 - 105) H 03/28/18 12:24 Whole Bld Lactic Acid 1.68 mmol/L (0.60-1.99) 03/26/18 12:18 Calcium 9.1 mg/dL (8.6-10.3) 03/31/18 04:30 Total Bilirubin 0.9 mg/dL (0.3-1.0) 03/31/18 04:30 AST 30 U/L (13-39) 03/31/18 04:30 ALT 14 U/L (7-52) 03/31/18 04:30 Alkaline Phosphatase 65 U/L (34-104) 03/31/18 04:30 Creatine Kinase 37 U/L (30-223) 03/26/18 12:18 Troponin I 0.03 ng/mL (0.01-0.05) 03/26/18 12:18 Total Protein 6.7 gm/dL (6.0-8.3) 03/31/18 04:30 Albumin 3.7 gm/dL (3.7-5.3) 03/31/18 04:30 Globulin 3.0 gm/dL 03/31/18 04:30 Albumin/Globulin Ratio 1.2 (1.0-1.8) 03/31/18 04:30 Urine Source MIDSTREAM 03/26/18 14:31 Urine Color YELLOW 03/26/18 14:31 Urine Clarity CLEAR (CLEAR) 03/26/18 14:31 Urine pH 6.0 (4.6 - 8.0) 03/26/18 14:31 Ur Specific [place] 1.010 (1.005-1.030) 03/26/18 14:31 Urine Protein NEGATIVE mg/dL (NEGATIVE) 03/26/18 14:31 Urine Glucose (UA) NEGATIVE mg/dL (NEGATIVE) 03/26/18 14:31 Urine Ketones NEGATIVE mg/dL (NEGATIVE) 03/26/18 14:31 Urine Blood NEGATIVE (NEGATIVE) 03/26/18 14:31 Urine Nitrate NEGATIVE (NEGATIVE) 03/26/18 14:31 Urine Bilirubin NEGATIVE (NEGATIVE) 03/26/18 14:31 Urine Urobilinogen 0.2 E.U./dL (0.2 - 1.0) 03/26/18 14:31 Ur Leukocyte Esterase SMALL (NEGATIVE) H 03/26/18 14:31 Urine RBC NONE SEEN /hpf (0-5) 03/26/18 14:31 Urine WBC 0-2 /hpf (0-5) 03/26/18 14:31 Ur Epithelial Cells RARE /lpf (FEW) 03/26/18 14:31 Urine Bacteria NONE SEEN /hpf (NONE SEEN) 03/26/18 14:31 - Physical Exam Vitals and I&O: Vital Signs Temp 97.5 F 03/31/18 16:08 Pulse 97 03/31/18 16:08 Resp 18 03/31/18 16:08 BP 139/84 03/31/18 16:08 Pulse Ox 98 03/31/18 16:08 Intake & Output 03/30/18 03/31/18 03/31/18 18:59 06:59 18:59 Intake Total 1008.667 100 Balance 1008.667 100 Weight (lbs) 47.627 kg 47.627 kg Intake: Intake, IV Amount 958.667 D5-0.45NS 1,000 ml @ 80 958.667 mls/hr IV .[id number] [facility] Rx #:[id number] Oral 50 100 Other: # Voids 3 2 # Bowel Movements 0 Weight Source Bedscale Bedscale Active Medications: Current Medications Al Hydrox/Mg Hydrox/Simethicone (Maalox) 30 ml PO DAILY PRN PRN Reason: GI DISTRESS Stop: 05/26/18 08:42 Aspirin (Ecotrin) 81 mg PO DAILY [facility] Stop: 05/26/18 08:59 Last Admin: 03/31/18 09:05 Dose: 81 mg Famotidine (Pepcid) 20 mg PO DAILY [facility] Stop: 05/26/18 08:59 Last Admin: 03/31/18 09:05 Dose: 20 mg Dextrose/Sodium Chloride (D5-0.45ns) 1,000 mls @ 80 mls/hr IV .[id number] [facility] Stop: 05/27/18 11:59 Last Admin: 03/30/18 08:54 Dose: 80 mls/hr Loratadine (Claritin) 10 mg PO DAILY PRN PRN Reason: Allergy Symptoms Stop: 05/25/18 18:36 Lorazepam (Ativan) 1 mg IVP Q6H PRN; Protocol PRN Reason: Agitation Stop: 05/25/18 18:45 Last Admin: 03/30/18 22:11 Dose: 1 mg Megestrol Acetate (Megace) 400 mg PO BID [facility]; Protocol Stop: 05/27/18 16:59 Last Admin: 03/31/18 09:04 Dose: 400 mg Metoprolol Tartrate (Lopressor) 50 mg PO BID [facility] Stop: 05/26/18 08:59 Last Admin: 03/31/18 09:04 Dose: 50 mg Nitroglycerin (Nitrostat) 0.4 mg SL Q5MIN PRN PRN Reason: Chest Pain Stop: 05/25/18 18:36 Quetiapine Fumarate (Seroquel) 12.5 mg PO TID [facility]; Protocol Stop: 05/30/18 08:59 Last Admin: 03/31/18 14:10 Dose: Not Given Simvastatin (Zocor) 10 mg PO HS ORI; Protocol Stop: 05/25/18 20:59 Last Admin: 03/30/18 21:32 Dose: 10 mg General: Alert, No acute distress HEENT: Atraumatic Neck: Supple Cardiovascular: Regular rate, Normal S1, Normal S2 Lungs: Clear to auscultation Abdomen: Bowel sounds, Soft Assessment/Plan - Problem List Patient Problems: All Active Problems Failure to thrive (Acute) [id number] HTN (hypertension) (Acute) I10 Myocardial infarction (Acute) I21.9 Psychosis (Acute) F29 - Assessment Assessment: agitation psychosis - Plan Plan: cpm Nutritional Asmnt/Malnutr-PDOC - Dietary Evaluation Malnutrition Findings (Please click <Entered> for more info): Nutritional Asmnt/Malnutrition Start: 03/29/18 14: 17 Text: Status: Complete Freq: Protocol: Document 03/29/18 14:17 [email or web address] (Rec: 03/29/18 14:46 [email or web address] [id number]) Nutritional Asmnt/Malnutrition Patient General Information Nutritional Screening Moderate Risk Diagnosis Syncope, myocardial ischemia Pertinent Medical Hx/Surgical Hx Hypertension, diabetes, arthritis Subjective Information Patient [place]ian speaking. Per nursing notes, patient sometimes refuses food. Calorie count start 03/28 lunch . To go through 03/30 breakfast . Patient seen in bed at time of visit. Current Diet Order/ Nutrition Support 60 gm CCHO Patient / S.O Not Indicated Pertinent Medications maalox, D5-0.45 NS @80ml/hr, pepcid, Megace Pertinent Labs (03/29) BUN 26 Nutritional Hx/Data Height 1.63 m Height (Calculated Centimeters) 162.6 Current Weight (lbs) 47.627 kg Weight (Calculated Kilograms) 47.6 Weight (Calculated Grams) 68022.2 Usual body Weight (lbs) 0 [place] Body Weight 120 % [place] Body Weight 87 Body Mass Index (BMI) 18.0 Recent Weight Change No Weight Status Underweight GI Symptoms GI Symptoms None Last BM 03/28 x 2 Difficult in: None Food Allergies No Cultural/Ethnic/Faith Belief none indicated Usual diet at home unknown Skin Integrity/Comment: Sai 14, right shoulder abrasion Current %PO Poor (25-49%) Estimated Nutritional Goals BEE in Kcals: Using Current wt Calories/Kcals/Kg 30-35 kcal/kg using CBW 47.7kg Kcals Calculated ~6816-2702 kcal/day Protein g/k-1.2 gm/kg Protein Calculated ~50-60 gm/day Fluid: ml ~9925-0696 ml/day (1 ml/kcal) Nutritional Problem 1. Problem Problem Inadequate oral intake related to Etiology possible poor appetite aeb Signs/Symptoms: meeting <50% of meals Intervention/Recommendation Comments 1. Continue 60 gm CCHO diet as tolerated by patient. 2. Continue appetite stimulant to increase oral intake. 3. Will analyze calorie count on 03/31 once completed Expected Outcomes/Goals Expected Outcomes/Goals oral intake >75% of meals, weight stable or increase toward ideal body weight, nutrition related labs normalize.
--- NOTE | 2018-04-11 18:16 | Discharge Summary ---
DATE OF DISCHARGE: 03/31/2018 The patient was admitted to [facility] on 03/26/2018. The patient was discharged to [facility] on 03/31/2018. Essentially, this patient came in because of the failure to thrive, hypertensive cardiovascular disease, myocardial ischemia and syncope, rule out transient ischemic attack, rule out cardiac arrhythmia, underling psychosis. The patient was seen by all the consultants. Essentially, the patient improved and the patient was in stable condition on 03/31/2018, was discharged to [facility] where I will follow the patient. CONDITION AT THE TIME OF DISCHARGE: Stable. MEDICATIONS: See the reconciliation sheet. JOB# [id number]
== END 2018-03-31 19:30 | DRG 280 ==
LOC: ER 11:44 → TELE 16:00
PROVIDERS: ADMIT Internal Medicine; ATTEND Internal Medicine
DX: I21.9 Acute myocardial infarction, unspecified (principal); G93.40 Encephalopathy, unspecified; G45.9 Transient cerebral ischemic attack, unspecified; F03.90 Unspecified dementia, unspecified severity, without behavioral disturbance, psychotic disturbance, mood disturbance, and anxiety; I11.9 Hypertensive heart disease without heart failure; R62.7 Adult failure to thrive; E11.9 Type 2 diabetes mellitus without complications; M19.90 Unspecified osteoarthritis, unspecified site; R55 Syncope and collapse; W18.30XA Fall on same level, unspecified, initial encounter; Y93.89 Activity, other specified; Y92.89 Other specified places as the place of occurrence of the external cause; Y99.8 Other external cause status; I49.9 Cardiac arrhythmia, unspecified; F29 Unspecified psychosis not due to a substance or known physiological condition; Z83.3 Family history of diabetes mellitus; Z82.49 Family history of ischemic heart disease and other diseases of the circulatory system
CPT/HCPCS: 36415-UA; 71045-TC; 80048-TC; 80053-TC; 81001-TC; 82550-TC; 82948-90; 83605; 84484-TC; 85007-TC; 85025-TC; 85610-TC; 85730-TC; 90732; 93005; J2060; Z7610